=== PATIENT | female | born 1975 ===

== ENCOUNTER 2020-05-13 15:06 | Outpatient (CLI) | payer OTHER, SELFPAY ==
--- NOTE | ~2020-05-13 | XR_ITS ---
XR lumbar spine 2-3V DATE: 05/13/2020 16:02 INDICATION: Chronic low back pain. No acute injury. TECHNIQUE: AP, lateral, coned lateral lumbosacral views COMPARISON: None FINDINGS: The lumbar vertebrae are normally aligned. No fracture or bone destruction or spondylolisth esis. The pedicles are intact. Lumbar and lumbosacral interspaces are well preserved. The sacroiliac joints are normal. IMPRESSION: Normal examination Reviewed, dictated and finalized at location B. ATIENT PHLEBOTOMIST IMPRESSION: Normal examination
--- NOTE | ~2020-05-13 | XR_ITS ---
XR hip LT min 3V w AP pelvis DATE: 05/13/2020 16:02 INDICATION: Left hip pain. No acute injury. TECHNIQUE: AP pelvis. AP and lateral and crosstable lateral views of left hip COMPARISON: None FINDINGS: No pelvic fracture or bone destruction. The pubic symphysis and sacroiliac joints are intac t. Hip joint spaces are symmetric and well preserved. No fracture, dislocation, avascular necrosis or bone destruction of the left hip. There is a prominent amount of fecal material within the colon. No bowel obstruction is evident. IMPRESSION: Negative pelvis and left hip Reviewed, dictated and finalized at location B. ONS MECHANIC
--- NOTE | ~2020-05-13 | XR_ITS ---
XR chest 2V DATE: 05/13/2020 16:01 INDICATION: Cough. Influenza type A in June 2019. History of lupus. TECHNIQUE: PA and lateral views COMPARISON: None FINDINGS: Bilateral hyperinflation. No pulmonary infiltrate or consolidation or pulmonary mass lesion is evident. No pleural effusion or pulmonary vascular congestion or pneumothorax. Normal heart size. No hilar or mediastinal mass lesion or adenopathy is noted. Included skeletal structures are unremarkable. IMPRESSION: Bilateral hyperinflation suggesting obstructive airways disease Reviewed, dictated and finalized at location B. OONIST SPECIAL EFFECTS
--- NOTE | ~2020-05-13 | CT_ITS ---
EXAMINATION: CT abdomen pelvis w con DATE: 05/13/2020 16:29 INDICATION: Abdominal pain, generalized, for a few years TECHNIQUE: Computed tomography (CT) of the abdomen and pelvis was performed with 100 cc Omnipaque 350 intravenous contrast. Automated exposure control and iterative reconstruction technique were employe d. Exam dose: 203.60 mGy-cm total exam DLP. COMPARISON: None. FINDINGS: There is minimal dependent atelectasis of the lower lobes. The lower lung zones are otherwi se clear of infiltrate or consolidation. Normal heart size. No pericardial or pleural effusion. Small sliding hiatal hernia. There are small probable right hepatic cyst (series 3 image 27). The liver, gallbladder, bile ducts, pancreas and pancreatic duct are otherwise unremarkable. Normal splenic size. No splenic mass lesion. Normal morphology of the adrenal glands. No renal mass lesion or scarring. No urinary tract calculus or hydroureteronephrosis. The urinary isreal dder appears unremarkable. Uterus and adnexal areas are unremarkable. Normal caliber of the abdominal aorta. No abdominal aortic aneurysm or dissection. No intraperitoneal or retroperitoneal or pelvic mass lesion or adenopathy or ascites. Normal retrocecal appendix. There is a prominent amount of fecal material within the colon but no bow el obstruction, bowel wall thickening, pneumatosis or intraperitoneal free air. Included skeletal structures are unremarkable. IMPRESSION: Very small probable hepatic cyst Reviewed, dictated and finalized at Location A. Reviewed, dictated and finalized at location B. SECURITY ADMINISTRATOR
== END 2020-05-13 15:07 | disposition home or self-care (01) ==
PROVIDERS: PCP Physician Assistant; Visit Provider Physician Assistant
DX: R10.9 Unspecified abdominal pain (principal); R91.8 Other nonspecific abnormal finding of lung field
CPT/HCPCS: 71046; 72100; 73502; 74177; Q9967

== ENCOUNTER 2020-06-10 09:29 | Outpatient (CLI) | payer OTHER, SELFPAY ==
--- NOTE | ~2020-06-10 | US_ITS ---
EXAMINATION: US right upper quadrant EXAM DATE: 06/10/2020 10:07 INDICATION: Liver cyst seen on CT. TECHNIQUE: Multiple grayscale and Doppler images of the abdomen right upper quadrant were obtained (b y a technologist who performed the scan) and subsequently reviewed. There is no prior study for alberto scott. FINDINGS: The pancreatic head and body are normal in appearance. The pancreatic tail is not visualized. The l iver has normal echogenicity and contour. There are no focal liver lesions identified. There is no evidence of intrahepatic biliary duct dilation. Portal venous flow was seen in the hepatopedal, nor mal direction and has normal Doppler waveform. No right-sided hydronephrosis. Common bile duct measures 5 mm, which is normal. The gallbladder wall is normal in thickness, with ex pected amount of distention. No sonographic evidence of pericholecystic fluid. There is no cholelit hiases. Technologist performing exam reports patient did not demonstrate sonographic Gomez's sign. Please note that this sign is less reliable in patients who have received pain medication. IMPRESSION: 1. Unremarkable abdominal ultrasound exam. 2. Tiny liver cyst below ultrasound threshold. Reviewed, dictated and finalized at location B. GER COSTING
== END 2020-06-10 09:30 | disposition home or self-care (01) ==
LOC: ANHIMG 09:32
PROVIDERS: PCP Physician Assistant; Visit Provider Physician Assistant
DX: K76.89 Other specified diseases of liver (principal)
CPT/HCPCS: 76705

== ENCOUNTER 2020-06-17 10:09 | Outpatient (CLI) | payer OTHER, SELFPAY ==
--- NOTE | 2020-06-17 16:54 | P.PCNPFT_ITS ---
PFT Interpretation This is a pulmonary function test with spirometry, plethysmography and diffusing capacity. The test was performed and results interpreted in accordance with the 2019 and 2005 ATS/ERS Task Force guidelines respectively using the Beny/Poldave reference equations. Findings: Spirometry: The contour of the inspiratory and expiratory flow tracing are no rmal. the FVC is 3.69 L, 110% predicted. The FEV1 is 2.95 L, 113% predicted. The FEV1: FVC ratio was 80%. Plethysmography: The total lung capacity is 5.38 L, 111% predicted. The functional residual capacity is 3.06 L, 107% predicted. The residual volume is 1.69 L, 105% predicted. Diffusing capacity: The absolute diffusion capacity is 19.6, 101% predicted. The diffusing capacity corrected for alveolar volume is 3.77, 88% predicted. Impression: The spirometry is normal without evidence of an obstructive abnormality. The lung volumes are normal. The diffusing capacity is normal. There are no prior studies for comparison
== END 2020-06-17 10:10 | disposition home or self-care (01) ==
PROVIDERS: PCP Physician Assistant; Visit Provider Physician Assistant
DX: R93.89 Abnormal findings on diagnostic imaging of other specified body structures (principal)
CPT/HCPCS: 94375; 94726; 94729

== ENCOUNTER 2020-09-12 10:55 | Outpatient (CLI) | payer OTHER, SELFPAY ==
--- NOTE | ~2020-09-12 | XR_ITS ---
XR hand LT 2V DATE: 09/12/2020 11:21 INDICATION: Polyarthralgia. Left hand pain. TECHNIQUE: AP and lateral views COMPARISON: None FINDINGS: There is narrowing at some of the interphalangeal joints, likely due to mild osteoarthritis . No fracture, dislocation, periosteal reaction or bone destruction or chondrocalcinosis. IMPRESSION: Mild osteoarthritic changes at interphalangeal joints Reviewed, dictated and finalized at location A.
--- NOTE | ~2020-09-12 | XR_ITS ---
XR hand RT 2V DATE: 09/12/2020 11:20 INDICATION: Polyarthralgia. Right hand pain TECHNIQUE: AP and lateral views COMPARISON: None FINDINGS: There is narrowing at some of the interphalangeal joints of the small degenerative ossicle at the interphalangeal joint of the first digit, likely secondary to osteoarthritis. No fracture, dislocation, periosteal reaction or bone destruction. No chondrocalcinosis. IMPRESSION: Mild osteoarthritis Reviewed, dictated and finalized at location A. IMPRESSION: Mild osteoarthritis
--- NOTE | ~2020-09-12 | XR_ITS ---
XR foot LT 2V DATE: 09/12/2020 11:21 INDICATION: Polyarthralgia TECHNIQUE: AP and lateral views COMPARISON: None FINDINGS: No fracture, dislocation, periosteal reaction or bone destruction or erosive change. Joint spaces appear relatively well preserved. IMPRESSION: No significant abnormality Reviewed, dictated and finalized at location A. IMPRESSION: No significant abnormality
--- NOTE | ~2020-09-12 | XR_ITS ---
XR foot RT 2V DATE: 09/12/2020 11:20 INDICATION: Polyarthralgia TECHNIQUE: AP and lateral views COMPARISON: None FINDINGS: No fracture or dislocation, periosteal reaction or bone destruction, erosive change. IMPRESSION: No significant abnormality Reviewed, dictated and finalized at location A. IMPRESSION: No significant abnormality
== END 2020-09-12 10:56 | disposition home or self-care (01) ==
PROVIDERS: PCP Physician Assistant; Visit Provider Internal Medicine Rheumatology
DX: M25.50 Pain in unspecified joint (principal); Z79.899 Other long term (current) drug therapy; Z51.81 Encounter for therapeutic drug level monitoring; M32.19 Other organ or system involvement in systemic lupus erythematosus
CPT/HCPCS: 73120; 73620

== ENCOUNTER 2020-11-02 13:25 | Outpatient (CLI) | payer OTHER, SELFPAY ==
--- NOTE | 2020-11-02 | ECG_ITS ---
Measurements Intervals Hobbs Rate: 64 P: 79 KS: 121 QRS: 83 QRSD: 87 T: 48 QT: 415 QTc: 428 Interpretive Statements SINUS RHYTHM POSSIBLE LEFT ATRIAL ENLARGEMENT INCOMPLETE RIGHT BUNDLE BRANCH BLOCK BORDERLINE ECG Electronically Signed On 11-02-2020 14:02:11 CDT by Frank Dumont D.O.
== END 2020-11-02 13:26 | disposition home or self-care (01) ==
PROVIDERS: PCP Physician Assistant; Visit Provider Physician Assistant
DX: R42 Dizziness and giddiness (principal); I45.10 Unspecified right bundle-branch block
CPT/HCPCS: 93005

== ENCOUNTER 2022-02-20 07:36 | Outpatient (CLI) | payer OTHER, SELFPAY ==
--- NOTE | ~2022-02-20 | MM_ITS ---
EXAMINATION: MM screening berkley BI w adrian HISTORY: Screening TECHNIQUE: Craniocaudal and mediolateral oblique 3-D tomosynthesis images were obtained and synthetic 2-D images were generated. CAD analysis was submitted and interpreted. COMPARISON: No prior mammogram is available for comparison at this institution. BREAST PARENCHYMAL COMPOSITION: The breasts are heterogeneously dense, which may obscure small masses FINDINGS: There is no evidence of suspicious mass, calcification, or architectural distortion to sugg est malignancy in either breast. There has been no suspicious interval change. IMPRESSION: 1. No mammographic evidence of malignancy. 2. Recommend routine screening mammography in one year. BI-RADS Category 1: Negative Reviewed, dictated and finalized at location A.
== END 2022-02-20 07:37 | disposition home or self-care (01) ==
PROVIDERS: PCP Physician Assistant; Visit Provider Physician Assistant
DX: Z12.31 Encounter for screening mammogram for malignant neoplasm of breast (principal)
CPT/HCPCS: 77063; 77067

== ENCOUNTER 2023-02-25 10:30 | Outpatient (CLI) | payer OTHER, SELFPAY ==
--- NOTE | ~2023-02-25 | MM_ITS ---
EXAMINATION: MM screening berkley BI w adrian HISTORY: Screening mammogram TECHNIQUE: Craniocaudal and mediolateral oblique 3-D tomosynthesis images were obtained and synthetic 2-D images were generated. CAD analysis was submitted and interpreted. COMPARISON: 02/20/2022 bilateral screening mammogram BREAST PARENCHYMAL COMPOSITION: The breasts are heterogeneously dense, which may obscure small masses . FINDINGS: There is an approximately 5.5 mm opacity in the upper right breast on MLO view; diagnostic right mammogram is recommended, with ultrasound if required. Otherwise there is no evidence of suspic ious mass, calcification, or architectural distortion to suggest malignancy in either breast. There h as been no other suspicious interval change. IMPRESSION: 1. 5.5 mm opacity suggested in upper right breast on MLO view 2. Diagnostic right mammogram is recommended, with ultrasound if required BI-RADS Category 0: Incomplete: Needs additional imaging evaluation. Reviewed, dictated and finalized at location A.
== END 2023-02-25 10:31 | disposition home or self-care (01) ==
LOC: ANHIMG 10:34
PROVIDERS: PCP Family Medicine; Visit Provider Family Medicine
DX: Z12.31 Encounter for screening mammogram for malignant neoplasm of breast (principal); R92.8 Other abnormal and inconclusive findings on diagnostic imaging of breast
CPT/HCPCS: 77063; 77067

== ENCOUNTER 2023-03-19 11:31 | Outpatient (CLI) | payer OTHER, SELFPAY ==
--- NOTE | ~2023-03-19 | MMUS_ITS ---
EXAMINATION: MM diagnostic berkley RT w adrian, US breast RT limited HISTORY: Possible right breast mass on screening mammogram TECHNIQUE: Additional 3-D tomosynthesis images of the right breast were performed and synthetic 2-D i mages were generated. CAD analysis was submitted and interpreted. High resolution limited right breas t ultrasound was performed. COMPARISON: 02/25/2023, 02/20/2022 FINDINGS: MAMMOGRAPHIC FINDINGS: There is a 5 mm oval, obscured, low density mass in the middle/posterior third upper breast at the 12 :00 location, 4 cm from the nipple. No suspicious calcification or architectural distortion are ident ified. ULTRASOUND: There is a 4 mm oval, not parallel mass with indistinct and possible angular margins at the 12:00 loc ation 3 cm from the nipple. There appears to be an echogenic rim surrounding the mass. No internal va scularity is identified. IMPRESSION: 1. Indeterminate right breast mass. 2. Ultrasound-guided biopsy is recommended. BI-RADS category 4, suspicious findings. Reviewed, dictated and finalized at location A. MAKER IMPRESSION: 1. Indeterminate right breast mass. 2. Ultrasound-guided biopsy is recommended. BI-RADS category 4, suspicious findings.
== END 2023-03-19 11:32 | disposition home or self-care (01) ==
PROVIDERS: PCP Family Medicine; Visit Provider Physician Assistant
DX: N63.10 Unspecified lump in the right breast, unspecified quadrant (principal); R92.8 Other abnormal and inconclusive findings on diagnostic imaging of breast
CPT/HCPCS: 76642; 77061; 77065; G0279

== ENCOUNTER 2023-04-01 09:16 | Outpatient (CLI) | payer OTHER, SELFPAY ==
--- NOTE | ~2023-04-01 | MMUS_ITS ---
EXAMINATION: US GUIDED NEEDLE BIOPSY DATE: 04/01/2023 11:01 COMMUNITY PLACEMENT WORKER INDICATION: 4 mm oval not parallel mass with indistinct and possibly angular margins at 12:00 3 cm fr om nipple reported on 03/19/2023 limited right breast ultrasound examination TECHNIQUE AND FINDINGS: The risks and potential benefits of the procedure were discussed with the patient, and written inform ed consent was obtained. Timeout procedure was performed. After sterile preparation of the right sixt[address], 1% lidocaine was utilized for local anesthesia. A 12-gauge spring-loaded biopsy gun needle was advanced to the edge of the region of interest from a medial approach utilizing sonographic guidance. A total of 2 tissue core samples were obtained throu gh the lesion. An Inrad tissue marker clip was then placed at the biopsy site. The lesion was no denver sd detectable after the tissue core biopsies. Hemostasis was achieved. A sterile bandage was applied . The patient tolerated procedure well and there was no evidence of immediate complication. The patien t was given verbal instructions prior to departing from the department. A two view mammogram was perf ormed to document tissue marker clip placement. The tissue samples were submitted to surgical patholo gy for histologic analysis. IMPRESSION: Ultrasound guided biopsy of 12:00 hypoechoic breast mass with biopsy marker placement. Please refer t o pathology report for histologic analysis. Reviewed, dictated and finalized at Location A. Reviewed, dictated and finalized at location A. UNITY PLACEMENT WORKER IMPRESSION: Ultrasound guided biopsy of 12:00 hypoechoic breast mass with biopsy marker salud cement. Please refer to pathology report for histologic analysis.
== END 2023-04-01 09:17 | disposition home or self-care (01) ==
PROVIDERS: PCP Family Medicine; Visit Provider Physician Assistant Surgical
DX: N63.10 Unspecified lump in the right breast, unspecified quadrant (principal); R92.8 Other abnormal and inconclusive findings on diagnostic imaging of breast
CPT/HCPCS: 19083; 88305; A4648

== ENCOUNTER 2023-04-22 09:55 | Outpatient (CLI) | payer OTHER, SELFPAY ==
--- NOTE | ~2023-04-22 | MR_ITS ---
MR breast BI wo/w con 04/26/2023 08:50 CYTOGENETICS TECHNOLOGIST INDICATION: Benign intraductal papilloma per biopsy TECHNIQUE: MRI of the breasts perform using standard protocol pre-and post IV contrast with the follo wing sequences: Axial T2 STIR, axial T1, axial vibrant T1 with fat suppression precontrast and multip hasic postcontrast. COMPARISON: Comparison to multiple prior studies sequentially, with oldest reviewed study dated 02/03. FINDINGS: There are small bilateral cysts of the breasts. There is mild background parenchymal enhanc ement. At 3:00 in the lower inner quadrant of the right breast, middle third there is an oval mass wh ich is isointense on T2 and T1 with rapid washout enhancement measuring 5 x 5 x 4 mm. Centrally and a nteriorly in the right breast there is a 3 mm foci of enhancement with medium washout kinetics. There are digital foci of enhancement measuring 2 mm or less, likely benign background enhancement. No thais dence of signal abnormalities in the axillary or internal mammary node distributions. LEFT BREAST: Small bilateral breast cysts.. There is mild background parenchymal enhancement. In the central middle aspect of the left breast there is a 3 mm foci of enhancement with rapid plateau kinet ics. This lesion is isointense on T1 and T2. There are a few scattered foci of enhancement measuring 2 mm or less, likely background enhancement. No evidence of signal abnormalities in the axillary or i nternal mammary node distributions.] IMPRESSION: 1: Right breast: Enhancing mass at 3:00, lower inner quadrant and foci of enhancement centrally and anteriorly in the right breast measuring 3 mm. Second look right breast ultrasound recommended. BI-RA DS Category 0. 2: Left breast: 3 mm foci of rapid plateau enhancement in the central middle aspect of the left si[address]. Second Look Limited left breast ultrasound recommended. BI-RADS Category 0. Follow-up MRI may be useful for supplementing mammographic and sonographic evaluation as clinically i ndicated. Reviewed, dictated and finalized at location A. GENETICS TECHNOLOGIST IMPRESSION: 1: Right breast: Enhancing mass at 3:00, lower inner quadrant and foci of enha ncement centrally and anteriorly in the right breast measuring 3 mm. Second loo k right breast ultrasound recommended. BI-RADS Category 0. 2: Left breast: 3 mm foci of rapid plateau enhancement in the central middle a spect of the left breast. Second Look Limited left breast ultrasound recommende d. BI-RADS Category 0. Follow-up MRI may be useful for supplementing mammographic and sonographic eval uation as clinically indicated.
== END 2023-04-22 09:56 | disposition home or self-care (01) ==
PROVIDERS: PCP Family Medicine; Visit Provider Surgery
DX: R92.8 Other abnormal and inconclusive findings on diagnostic imaging of breast (principal); N63.10 Unspecified lump in the right breast, unspecified quadrant
CPT/HCPCS: 77049; A9577; C8908

== ENCOUNTER 2023-05-27 10:16 | Outpatient (CLI) | payer BC, SELFPAY ==
--- NOTE | ~2023-05-27 | US_ITS ---
EXAMINATION: US breast BI limited HISTORY: Second look follow-up ultrasound after MRI to evaluate bilateral breast masses TECHNIQUE: Limited bilateral breast ultrasound was performed. FINDINGS: Right breast: The previously biopsied mass is seen at the 12:00 location, 4 cm from the nipple. No de finite sonographic correlate is identified for the mass detected on MRI at the 3:00 location. Left breast: There is a 3 mm round, circumscribed, hypoechoic mass with no posterior features or inte rnal vascularity in the subareolar aspect of the left breast. Sonographic appearance is similar to th e mass biopsy as benign papilloma in the right breast. IMPRESSION: No definite ultrasound correlate identified for the mass at the 3:00 location in the right breast and probably benign mass in the subareolar left breast. Follow-up breast MRI in six months is recommende d. BI-RADS category 3, probably benign findings. Reviewed, dictated and finalized at location A. TS BOOKMAKER IMPRESSION: No definite ultrasound correlate identified for the mass at the 3:00 location i n the right breast and probably benign mass in the subareolar left breast. Foll ow-up breast MRI in six months is recommended. BI-RADS category 3, probably benign findings.
== END 2023-05-27 10:17 | disposition home or self-care (01) ==
PROVIDERS: PCP Family Medicine; Visit Provider Surgery
DX: R92.8 Other abnormal and inconclusive findings on diagnostic imaging of breast (principal)
CPT/HCPCS: 76642

== ENCOUNTER 2023-06-19 10:18 | Outpatient (CLI) | payer BC, SELFPAY ==
--- NOTE | ~2023-06-19 | MMUS_ITS ---
EXAMINATION: US_MAGSEEDRT_US, MM post biopsy invasive RT INDICATION: Right breast mass TECHNIQUE: The procedure for a ultrasound -guided Magseed localization was discussed with the patient . Risks discussed included bleeding and infection. The patient verbalized understanding and agreed to proceed. The time out was performed to verify the patient's name, date of , and site of procedure. The sk in overlying the right breast was prepared in usual fashion. Utilizing ultrasound guidance, the needl e was advanced into the right breast in the magseed was deployed adjacent to the ultrasound biopsy ma rker. Confirmation of Magseed position was achieved with ultrasound and subsequent mediolateral and c raniocaudal mammogram. The patient tolerated procedure without immediate complication. FINDINGS: Ultrasound and mammographic images demonstrate deployment of the Magseed device abutting th e biopsy marker of the right breast. IMPRESSION: 1. Successful ultrasound-guided right breast Magseed localization. Reviewed, dictated and finalized at location A. CAL LABORATORY ASSISTANT IMPRESSION: 1. Successful ultrasound-guided right breast Magseed localization.
== END 2023-06-19 10:19 | disposition home or self-care (01) ==
PROVIDERS: PCP Family Medicine; Visit Provider Surgery
DX: N63.10 Unspecified lump in the right breast, unspecified quadrant (principal); R92.8 Other abnormal and inconclusive findings on diagnostic imaging of breast
CPT/HCPCS: 19285; A4648

== ENCOUNTER 2023-07-01 03:26 | Day surgery (SDC) | payer BC, SELFPAY ==
[2023-06-25 08:32] VITALS: BMI 21.7
--- NOTE | 2023-06-25 08:42 | SUR.PREOP ---
Addendum entered by Leah Virk RN 06/25/23 08:47: PROCEDURE DATE 07/01/23 Original Note: Report to the Outpatient Waiting Room, entrance under the green pavilion located off [facility], at time _0930_ on date _06/27/23_. Planned Procedure Time: _1130__. Time changes happen often and if your time is changed the preop area will call you the afternoon before. - You and your visitor will be asked to self-screen and do not enter if you have any COVID symptoms. - A mask is optional within the hospital at this time. Patients may have clear liquids (water, carbonated beverages, clear teas, apple juice) until 3 hours prior to surgery with a maximum of 20 ounces. - No food from midnight until time of surgery - Infants may have breast milk until 4 hours before surgery, formula 6 hours prior to surgery. - Children will be allowed to drink immediately following surgery. If applicable, please bring a bottle or sippy cup to assist with drinking. Juice, water, soda, and popsicles are readily available. For infants on formula, please bring formula the day of surgery. Pacifiers are allowed. Take the following medications with a SIP of water the morning of surgery: ___NO MORNING MEDS DO NOT STOP ANY OF YOUR OTHER PRESCRIPTION MEDICATIONS PRIOR TO SURGERY ?EXCEPT THE FOLLOWING Medications to discontinue per physician HOLD SUPPLEMENTS AND VITAMINS 3 DAYS PRIOR Date to take last dose Please no make-up, nail bermudian, hairspray, perfume, deodorant, or body powder the day of surgery. No jewelry (including any body piercings) or valuables the day of surgery, leave them at home. Please take a shower or bath the night before, or the morning of, surgery with an antibacterial soap. Wear comfortable, loose fitting clothing. Children are encouraged to wear pajamas. - Jewelry must be removed prior to entering the operating room. Rings and piercings that are not removed may be cut off. - The hospital will not accept responsibility for valuables. - Please leave all valuables, including medications, at home the day of surgery. If you are going home after surgery, a licensed class a regional drivers must drive you home. - NO public transportation without another adult if you receive anesthesia. - We recommend that an adult stay with you for 24 hours following discharge. - We also recommend that you do not drive, make important decision, drink alcoholic beverages, or take any drugs that were not prescribed by your health care provider for at least 24 hours after your discharge time. For Pediatric surgeries, we recommend two adults accompany the child home. Follow any additional instructions given to you from your surgeon. If you or anyone in your household have experienced Covid symptoms in the past week, please notify your surgeon or the nurse liaison at the phone number below for possible testing. Telephone instructions given to __PATIENT___and asked if any additional questions and then verbalized understanding. Patient advised to call surgeon office or pre surgery nurse liaison [phone] if any additional questions.
[2023-07-01] VITALS (7 sets, daily range): BP systolic 102–111; BP diastolic 51–62; PULSE 64–78; RESP 12–18; TEMP 36.2–36.4; O2SAT 96–100
--- NOTE | ~2023-07-01 | MM_ITS ---
MM_FAXITRON_MG 07/01/2023 13:53 Indication: Post breast biopsy specimen Procedure: Single view of the right breast biopsy specimen Comparison: 06/19/2023 Findings: Specimen contains the tissue marker and magseed postsurgical resection. Impression: 1: Post biopsy specimen contains the biopsy tissue marker and magseed. Please refer to procedural rep ort for details. Reviewed, dictated and finalized at location A. [facility] [place] Impression: 1: Post biopsy specimen contains the biopsy tissue marker and magseed. Please r efer to procedural report for details.
[2023-07-01] MEDS: LACTATED RINGERS 1,000 ML 30 ML IV CONT ×2 (10:15→13:53)
--- NOTE | 2023-07-01 11:05 | WPDHPUPDATE1 ---
History and Physical Update Update Date/Time: 07/01/23 11:05 History and Physical has been reviewed, including an updated exam of the patient. There are NO changes in the patient's condition. Risks, benefits, and alternatives have been discussed and questions answered. Patient agrees to proceed with procedure.
[2023-07-01] MEDS: ACETAMINOPHEN 500 MG TABLET 1000 MG PO (11:28)
--- NOTE | 2023-07-01 11:43 | WPDANESEPPF ---
Anes - Initial Pre Proc Eval Procedure: Operation Date: 07/01/23 11:30 Proposed Procedures p Right Breast Excisional Biopsy with Mag Seed Localization - Gabby Villareal MD Date/Time: 07/01/23 11:43 Surgeon: Gabby Villareal MD Pre Op Diagnosis: right breast mass Patient Data Age: 47 Gender: F Height: 1.55 m Weight: 54.6 kg Last Vital Signs Temp 36.4 C 07/01/23 10:00 Pulse 64 07/01/23 10:00 Resp 12 07/01/23 10:00 BP 111/62 07/01/23 10:00 Pulse Ox 100 07/01/23 10:00 O2 Del Method Room Air 07/01/23 10:00 Allergies Allergy/AdvReac Type Severity Reaction Status Date / Time hydrocodone [From Vicodin] AdvReac Other Verified 07/01/23 11:23 Home Medications Medication Instructions Recorded Confirmed Type ferrous sulfate 325 mg (65 mg 325 mg PO DAILY 06/25/23 06/25/23 History iron) tablet (FeroSul) multivitamin 1 tablet PO DAILY 06/25/23 06/25/23 History hydrocodone 5 mg-acetaminophen 325 1 tablet PO Q6H PRN pain #7 tabs 07/01/23 Rx mg tablet Patient hx anesthesia problems: none Family hx anesthesia problems: none Results Review: All pre-operative results and documents have been reviewed as part of the pre-operative evaluation. [facility] Past Medical History Medical History Gastritis and duodenitis Lupus (systemic lupus erythematosus) Surgical History Surgical History Hx of colonoscopy Hx of esophagogastroduodenoscopy Family History Family History Other Diabetes mellitus Heart disease Hypertension Ovarian cancer Social History Social History Smoking packs per day: 0 Smoking cigarettes per day: 0.0 Smoking status: Never smoker Second hand tobacco smoke exposure: No Alcohol intake: current Substance use: never Substance use type: does not use Lack of Transportation: No Lack of Food: Never True Current Housing: I Have Housing Concerned About Future Housing: No Difficulty Paying Gas/Electric Bills: No Difficulty Paying for Meds: No Currently Unemployed: No Education: Associate Degree Difficulty w/ Childcare or Family Care: No Living arrangements: with family Additional occupation/education comments: dental hygienist Gender identity (if verbalized by the patient): Female Sexual Orientation (if Verbalized by the Patient): Straight or Heterosexual Spiritual care concerns: No Agree to blood products: Yes Anes - Eval Final PreProcedure Day of Procedure 07/01/23 11:43 Patient weight: normal Heart: regular rate and rhythm Lungs: clear to auscultation Airway: Mallampati scale class 1 Neurological: alert and oriented Last oral intake: >/= 8 hours ASA classification: II Emergent: no Anesthetic plan: proceed Anesthesia type and monitoring: general GIVS and standard monitoring Results Review: All pre-operative results and documents have been reviewed as part of the pre-operative evaluation. Informed Consent: The patient's anesthetic plan and its attendant risks and benefits were discussed with the patient/family/POA. Questions were solicited and answers provided to the satisfaction of the patient/family/POA.
[2023-07-01] MEDS: BUPIVACAINE/EPINEPHRINE 0.5% 30 ML VIAL INFILTRATE (12:49)
[2023-07-01] MEDS: ceFAZolin 2 GM/D5W 50 ML 2 GM/50 ML BAG IVPB (12:49)
--- NOTE | 2023-07-01 13:49 | P.OP_ITS ---
Procedure Note - Detailed Date of Procedure 07/01/23 Pre-op Diagnosis right breast mass Post-op Diagnosis Same Procedure Performed 1. Excisional biopsy of right breast mass. 2. Adjacent tissue transfer 2cm x 4cm for intraparenchymal closure of biopsy cavity. Surgeon Gabby Villareal MD [employer] Cle[employer] Supervisor María Mancia PA-C Anesthesia General Indications 47-year-old female who was evaluated previously for a right breast mass. This mass was biopsied and showed a benign intraductal papilloma, however, this was felt discordant compared to radiologic findings. After discussing options for repeat biopsy versus excisional biopsy, patient elected to proceed with excision of this lesion. Risks of the procedure were discussed with the patient which included but not limited to risk of bleeding, infection, possible need for additional procedures in the future, wound healing problems, scar, pain, asymmetry, as well as the risk of anesthesia. All questions were answered patient agreed to proceed. Description of Procedure Patient was identified in the pre-operative area and brought to the OR suite. She underwent tumor localization previously by IR with magseed placement. She was laid supine in the operating table and sequential compression devices were applied. General anesthesia was induced without difficulties. The right chest was prepped and draped in a sterile fashion. The sentimag probe was used to identify the area where the magseed was placed and a superior periareolar incision was made. Dissection was carried down through the subcutaneous tissue into the breast tissue. The tumor was identified with palpation and using sentimag probe, and a rim of normal breast tissue was excised along with the tumor as our lumpectomy specimen. Once the specimen was completely excised, it was oriented using surgical paint according to auto club travel counselor instructions. The specimen was placed in the faxitron and 2 radiographs were obtained and sent to Radiology for radiographic confirmation of Tumor, biopsy marker and magseed within the specimen. Once the radiographic confirmation was received, the wound was irrigated with saline and hemostasis was assured. A dual plane was developed laterally to better approximate the breast tissue and decrease the risk of seroma formation at the biopsy cavity. Once the lateral breast tissue was mobilized, it was advanced medially to approximate and close the biopsy cavity and sutured in place to the medial breast tissue with several interrupted intraparenchymal 2-0 vicryl stitches. The deep dermal layer was approximated using interrupted 3-0 vicryl followed by 4-0 monocryl for the skin. Dermabond was applied followed by a surgical bra. Patient was awoken from anesthesia and taken to the recovery area in stable condition. All needles, instruments and sponge counts were correct as reported by the operating room staff. Patient tolerated the procedure well with no immediate complications. María Mancia PA-C was required for positioning and retraction throughout the entire case. Estimated Blood Loss 5 Drains No Packing No Pathology Yes Complications No immediate complications Condition Stable Disposition PACU [facility] Billing Surgery - Charge Forward: Surgery Billing (CPT 51473, [id number] - 59 / María Mancia - same code as underwriting assistant )
[2023-07-01] MEDS: oxyCODONE HCL (*CRX) 5 MG TAB IR PO (14:45)
== END 2023-07-01 15:20 | disposition home or self-care (01) ==
PROVIDERS: PCP Family Medicine; Visit Provider Surgery
PROC: (CPT 19125; principal; 2023-07-01 11:30)
DX: N63.10 Unspecified lump in the right breast, unspecified quadrant (principal); M32.9 Systemic lupus erythematosus, unspecified; Z79.891 Long term (current) use of opiate analgesic; Z80.41 Family history of malignant neoplasm of ovary; Z82.49 Family history of ischemic heart disease and other diseases of the circulatory system
CPT/HCPCS: 19125; 14301; 76098; 88307; A9270; J0690; J1100; J2250; J2405; J2704; J3010; J7120

== ENCOUNTER 2023-12-18 10:35 | Outpatient (CLI) | payer BC, SELFPAY ==
--- NOTE | ~2023-12-18 | MR_ITS ---
MR breast BI wo/w con 12/18/2023 12:16 CDT INDICATION: Evaluate for bilateral pulmonary masses. TECHNIQUE: MRI of the breasts perform using standard protocol pre-and post IV contrast with the follo wing sequences: Axial T2 STIR, axial T1, axial vibrant T1 with fat suppression precontrast and multip hasic postcontrast. 11 cc of MultiHance administered intravenously. COMPARISON: Comparison to multiple prior studies sequentially, with oldest reviewed study dated 02/03. FINDINGS: There are no abnormalities on the precontrast sequences. There is mild background parenchym al enhancement. At 2:00, middle third in the upper inner quadrant there is a 4 x 3 x 3 mm irregular s haped foci of rapid washout enhancement, possibly minimally increased in size compared with prior exa mination. No evidence of signal abnormalities in the axillary or internal mammary node distributions. LEFT BREAST: No signal abnormalities on precontrast sequences. There is mild background parenchymal enhancement. In the lateral aspect of the left breast, middle third there is a 2 mm foci of enhanceme nt No evidence of signal abnormalities in the axillary or internal mammary node distributions.] IMPRESSION: 1: Right breast: Possible minimal increased size of irregular shaped 4 mm foci of rapid washout enha ncement in the right breast at 2:00, middle third. Margins on the sagittal T1 postcontrast appear irr egular. Correlation with diagnostic bilateral mammogram and right breast ultrasound recommended. 2: Left breast: Stable foci of enhancement in the mid lateral aspect of the left breast measuring 2 mm which is T1 bright, likely benign. Recommendation: Follow-up diagnostic bilateral mammogram and right breast ultrasound recommended. BI-RADS CATEGORY 0 - INCOMPLETE STUDY, NEED ADDITIONAL IMAGING EVALUATION. Reviewed, dictated and finalized at location B. IMPRESSION: 1: Right breast: Possible minimal increased size of irregular shaped 4 mm foci of rapid washout enhancement in the right breast at 2:00, middle third. Margin s on the sagittal T1 postcontrast appear irregular. Correlation with diagnostic bilateral mammogram and right breast ultrasound recommended. 2: Left breast: Stable foci of enhancement in the mid lateral aspect of the le ft breast measuring 2 mm which is T1 bright, likely benign. Recommendation: Follow-up diagnostic bilateral mammogram and right breast ultra sound recommended. BI-RADS CATEGORY 0 - INCOMPLETE STUDY, NEED ADDITIONAL IMAGING EVALUATION.
== END 2023-12-18 10:36 | disposition home or self-care (01) ==
LOC: ANHIMG 10:38
PROVIDERS: PCP Family Medicine; Visit Provider Surgery
DX: R92.8 Other abnormal and inconclusive findings on diagnostic imaging of breast (principal); N63.10 Unspecified lump in the right breast, unspecified quadrant; N63.20 Unspecified lump in the left breast, unspecified quadrant
CPT/HCPCS: 77049; A9577; C8908

== ENCOUNTER 2024-01-27 13:24 | Outpatient (CLI) | payer BC, SELFPAY ==
--- NOTE | ~2024-01-27 | MMUS_ITS ---
EXAMINATION: MM diagnostic berkley BI w adrian, US breast BI limited HISTORY: Follow-up right breast abnormality seen on MRI examination. TECHNIQUE: Additional 3-D tomosynthesis images of the breasts were performed and synthetic 2-D images were generated. CAD analysis was submitted and interpreted. High resolution limited bilateral breast ultrasound was performed. COMPARISON: Comparison to multiple prior studies sequentially, with oldest reviewed study dated 02/03. BREAST PARENCHYMAL COMPOSITION: Dense: The breasts are heterogeneously dense, which may obscure small masses FINDINGS: MAMMOGRAPHIC FINDINGS: There are no suspicious masses, calcifications or architectural distortion in either breast to sugges t malignancy. ULTRASOUND: Limited right breast ultrasound: At 11:30, 3 cm from the nipple there is a 4 mm cyst. At 2:00, 3 cm f rom the nipple there is an oval hypoechoic mass showing 4 mm with slightly irregular margins, low lev el internal echoes and no significant posterior features or internal vascularity. This might correspo nds to the abnormality seen on MRI examination. Limited left breast ultrasound: At 3:00, 3 cm from the nipple there is a 4 mm cyst. No suspicious son ographic abnormalities to suggest malignancy. IMPRESSION: 1. Probable benign right breast mass at 2:00, 3 cm from the nipple. This may correspond to the findin g from recent MRI examination. 2. Recommend 6 month follow-up Limited right breast ultrasound recommended. BI-RADS category 3, probably benign findings. Reviewed, dictated and finalized at location B. IMPRESSION: 1. Probable benign right breast mass at 2:00, 3 cm from the nipple. This may co rrespond to the finding from recent MRI examination. 2. Recommend 6 month follow-up Limited right breast ultrasound recommended. BI-RADS category 3, probably benign findings.
== END 2024-01-27 13:25 | disposition home or self-care (01) ==
LOC: ANHIMG 13:25
PROVIDERS: PCP Family Medicine; Visit Provider Surgery
DX: R92.8 Other abnormal and inconclusive findings on diagnostic imaging of breast (principal); N63.10 Unspecified lump in the right breast, unspecified quadrant; N63.20 Unspecified lump in the left breast, unspecified quadrant
CPT/HCPCS: 76642; 77062; 77066; G0279